=== PATIENT | female | born 1940 | race Caucasian/White ===

== ENCOUNTER 2020-02-19 10:29 | Emergency (ER) | payer MEDICARE, MEDICAID ==
[~2020-02-19] VITALS: Ht 157.5 cm; Wt 59.0 kg
[2020-02-19 10:32] VITALS: BP_SYST 113
--- NOTE | 2020-02-19 10:32 | NUR ---
Patient to ER bed 5 to gown for evaluation. Side rails up. Report given to TEE Livingston.
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
--- NOTE | 2020-02-19 10:56 | NUR ---
ER Dr. Torres at bedside examining patient.
[2020-02-19] MEDS ORDERED: IBUPROFEN 800 MG TABLET PO ONE (11:00)
--- NOTE | 2020-02-19 11:12 | NUR ---
CALM, ALERT, COOPERATIVE, RESP UNLABORED, NO DISTRESS. COMMUNICATES CLEARLY
--- NOTE | 2020-02-19 11:56 | NUR ---
Patient is sitting upright, eating her lunch. Denied any respiratory distress at this time.
--- NOTE | 2020-02-19 12:18 | NUR ---
Tried to give report to Fabiana Nicole and was put on hold for 10 minutes.
--- NOTE | 2020-02-19 12:54 | NUR ---
ER MD discussed with the patient the results and treatment provided. Patient given written and verbal discharge instructions and verbalized understanding. Opportunity for questions provided and answered. Patient in stable condition, last set of vital signs within normal limits, pain scale 0/10, speaking in full sentences and ambulated with a steady gait upon discharge. ID arm band removed. No Rx given. Patient educated on pain management and to follow up with PMD. Medication side effect fact sheet provided. S transport is taking her back to [facility]. Spoke with Samantha of [facility] and gave a brief report and discharge instructions.
[2020-02-19 12:58] VITALS: BP_SYST 121
== END 2020-02-19 12:58 ==
LOC: SED 10:29
DX: S09.90XA Unspecified injury of head, initial encounter (principal); F20.9 Schizophrenia, unspecified; I10 Essential (primary) hypertension; F41.9 Anxiety disorder, unspecified; Z86.73 Personal history of transient ischemic attack (TIA), and cerebral infarction without residual deficits; Z88.0 Allergy status to penicillin; Z88.6 Allergy status to analgesic agent; W03.XXXA Other fall on same level due to collision with another person, initial encounter; Y93.89 Activity, other specified; Y92.89 Other specified places as the place of occurrence of the external cause; Y99.8 Other external cause status
CPT/HCPCS: 70450-TC; 99284

== ENCOUNTER 2020-03-30 10:55 | Emergency (ER) | payer MEDICARE, MEDICAID, SELFPAY ==
[~2020-03-30] VITALS: Ht 154.9 cm; Wt 59.9 kg
[2020-03-30 11:03] VITALS: BP_SYST 130
[2020-03-30 19:09] VITALS: BP_SYST 128
== END 2020-03-30 19:09 | disposition short-term general hospital (02) ==
LOC: SED 10:55
DX: I51.7 Cardiomegaly (principal); I10 Essential (primary) hypertension; Z20.828 Contact with and (suspected) exposure to other viral communicable diseases; Z88.0 Allergy status to penicillin; Z88.6 Allergy status to analgesic agent
CPT/HCPCS: 71045; 99285; C9803; U0003